=== PATIENT | male | born 1965 | race Caucasian/White ===

== ENCOUNTER 2018-04-16 18:39 | Emergency (ER) | payer OTHER ==
[2018-04-16 18:58] VITALS: BP 177/99; PULSE 66; TEMP 97.7; BMI 34.0
[2018-04-16] MEDS ORDERED: ACETAMINOPHEN 500 MG TABLET (FP) PO ONE (18:58)
--- NOTE | 2018-04-16 18:58 | PDOC ---
Rapid Medical Evaluation Chief Complaint: Headache Time Seen by Provider: 04/16/18 18:54 Medical Evaluation: 04/16/18 18:57 I performed a brief in-person evaluation of this patient. Chief complaint is: Severe headache ("like a vein is going to explode") left temporal region, associated with vomiting, sudden onset 30 mins ago. Pertinent physical exam findings include: Appears very uncomfortable/ distressed. Left eye injected. No neck stiffness or meningismus. No focal weakness or numbness. I have ordered the following: Labs, head CT. Patient will proceed to the ED for further evaluation. Discharge Disposition - Diagnosis Headache Qualifiers: Headache chronicity pattern: acute headache - Discharge Dispostion Condition at time of disposition: Stable - Referrals - Patient Instructions - Post Discharge Activity
[2018-04-16] MEDS ORDERED: ACETAMINOPHEN 325 MG TABLET (FP) ONE (19:02)
--- NOTE | 2018-04-16 20:38 | PDOC ---
History of Present Illness - General Chief Complaint: Headache Stated Complaint: FACIAL PAIN Time Seen by Provider: 04/16/18 18:54 - History of Present Illness Initial Comments: 52 year old male with no PMH presenting with intermittent left sided headache for the past week. Patient states that he has had multiple episodes of left sided headache that was sharp and severe on onset multiple times and had concomitant left sided tearing without visual symptoms. Patient states he does get headaches twice a week but those were generalized and squeezing sensation and that these are much different than his usual headaches. Denies any fevers, chills, neck stiffness, photophobia, sonophobia, nausea, vomiting, or other symptoms. Of note he admits to one episode of syncope in the shower 20 years ago and was diagnosed with "pre heart attack". All this work up was done in [place] but he was never prescribed medication for it. 04/16/18 23:12 01 Past History - Past Medical History Allergies/Adverse Reactions: Allergies Allergy/AdvReac Type Severity Reaction Status Date / Time No Known Allergies Allergy Verified 04/16/18 18:58 Home Medications: Ambulatory Orders Naproxen Sodium [Naproxen Sodium Cr] 500 mg PO BID PRN #30 tbmp.24hr 04/17/18 COPD: No Disorders: No Kidney Stones: No - Surgical History Cardiac Surgery: No Cholecystectomy: No - Immunization History Immunization Up to Date: No - Suicide/Smoking/Psychosocial Hx Smoking History: Never smoked Have you smoked in the past 12 months: No Information on smoking cessation initiated: No Hx Alcohol Use: No Drug/Substance Use Hx: No Review of Systems - Review of Systems Constitutional: No: Chills, Diaphoresis, Fever HEENTM: No: Blurred Vision, Tearing Respiratory: No: Cough, Orthopnea, Shortness of Breath Cardiac (ROS): No: Chest Pain, Edema, Irregular Heart Rate ABD/GI: No: Diarrhea, Nausea, Vomiting : No: Burning, Dysuria, Discharge Musculoskeletal: No: Joint Pain, Joint Swelling Integumentary: No: Rash, Sweating Neurological: Yes: Headache. No: Numbness, Paresthesia, Tingling Psychiatric: No: Anxiety, Depression Hematologic/Lymphatic: No: Anemia, Blood Clots, Easy Bleeding *Physical Exam - Vital Signs Last Vital Signs Temp Pulse Resp BP Pulse Ox 97.7 F 66 16 177/99 H 99 04/16/18 18:55 04/16/18 18:55 04/16/18 18:55 04/16/18 18:55 04/16/18 18:55 - Physical Exam General Appearance: Yes: Nourished, Appropriately Dressed. No: Apparent Distress HEENT: positive: EOMI, KAYCEE, Normal ENT Inspection, Normal Voice, Other (left sceleral injection no tenderness over scalp, no palpable cord.) Neck: negative: Tender Respiratory/Chest: positive: Lungs Clear, Normal Breath Sounds. negative: Chest Tender, Respiratory Distress, Accessory Muscle Use Cardiovascular: positive: Regular Rhythm, Regular Rate Gastrointestinal/Abdominal: positive: Normal Bowel Sounds, Flat, Soft. negative : Tender Lymphatic: negative: Adenopathy, Tenderness Musculoskeletal: positive: Normal Inspection. negative: Decreased Range of Motion Extremity: positive: Normal Capillary Refill, Normal Inspection, Normal Range of Motion. negative: Tender Integumentary: positive: Normal Color, Dry, Warm Neurologic: positive: Fully Oriented, Alert, Normal Mood/Affect, Normal Response , Motor Strength 5/5 Moderate Sedation - Procedure Monitoring Vital Signs: Procedure Monitoring Vital Signs Temperature 97.7 F 04/16/18 18:55 Pulse Rate 66 04/16/18 18:55 Respiratory Rate 16 04/16/18 18:55 Blood Pressure 177/99 H 04/16/18 18:55 O2 Sat by Pulse Oximetry (%) 99 04/16/18 18:55 ED Treatment Course - LABORATORY CBC & Chemistry Diagram: 04/16/18 21:16 04/16/18 18:56 - Medications Given in the ED: ED Medications Discontinued Medications Generic Name Dose Route Start Last Admin Trade Name Phuc PRN Reason Stop Dose Admin Acetaminophen 975 mg 04/16/18 18:58 04/16/18 19:04 Tylenol - PO 04/16/18 18:59 975 mg ONCE ONE Administration Medical Decision Making - Medical Decision Making 52 year old male with history of headaches but new onset left sided sharp intermittent headache. This headache is highly consistent with cluster headache given it comes on groups and comes on 12 hours to 2 day sin between. Denies any FND but does have lacrimation in the left eye. Patient improved with tylenol and oxygen but headache came back soon. His pain became severe enough to the point where the patient syncopized at one point when he immediately jumped up in pain out of the bed. He fell back onto the bed and did not hit his head. He had not shaking or post-ictal state. Both his CT head and CTA Brain were negative for bleed or aneurysm. His pain drastically improved after Toradol, Reglan, Benadryl and IV fluids. Patient ambulating and feels completely symptom free. Will DC with naproxen use instructions and neurology follow up. 04/17/18 01:26 *DC/Admit/Observation/Transfer Diagnosis at time of Disposition: Headache Qualifiers: Headache type: unspecified Headache chronicity pattern: acute headache Intractability: not intractable Qualified Code(s): R51 - Headache - Discharge Dispostion Disposition: HOME Condition at time of disposition: Improved Decision to Admit order: No - Prescriptions Prescriptions: Naproxen Sodium [Naproxen Sodium Cr] 500 mg PO BID PRN #30 tbmp.24hr PRN Reason: Headache - Referrals Referrals: Juan Jose Quezada MD [Staff Physician] - - Patient Instructions Printed Discharge Instructions: DI for Headache Additional Instructions: Please use naproxen as needed for the headache up to twice per day. Please see the neurologist this week or early next week. Please return to the ED if you have new or worsening symptoms. - Post Discharge Activity
--- NOTE | 2018-04-16 20:43 | PDOC ---
Attending Attestation - HPI HPI: 04/16/18 21:36 The patient is a 52-year-old male, with no past medical history, who presents to the ED with a left-sided headache today. The patient just got back from [place] today and states that his symptoms began while on his trip. He states that his headache would come on suddenly, but resolved after 15 minutes. His symptoms recurred 1 hour prior to arrival to the ED, but he became concerned when the headache did not resolve. He also endorses tearing from the left eye only. He reports that he experiences generalized headaches frequently, but has never experienced a headache localized to one side. - Physicial Exam PE: 04/16/18 21:40 Agree with resident's exam. <Tere Chiu - Last Filed: 04/16/18 21:36> - Resident Resident Name: Verna Simons - ED Attending Attestation I have performed the following: I have examined & evaluated the patient, The case was reviewed & discussed with the resident, I agree w/resident's findings & plan - Medical Decision Making 04/17/18 01:33 [id number] male with intermittent left-sided headache CT scan of the brain plain and CTA were negative for acute abnormality Patient improved after Toradol, Reglan, Benadryl and IV fluid normal saline in the emergency department He will be discharged to follow up with neurology for further evaluation at Impression intermittent left-sided headache <Fariha Boggs - Last Filed: 04/17/18 01:36> Attestations - Attestations 04/16/18 21:40 Documentation prepared by Tere Chiu, acting as medical equipment repairer for Fariha Boggs DO. <Tere Chiu - Last Filed: 04/16/18 21:36>
[2018-04-16 21:29] LABS: BASO % 0.3 % (0-2.0); EOS % 3.7 % (0-4.5); HEMATOCRIT 50.8 % (35.4-49); HEMOGLOBIN 17.8 GM/dL (11.7-16.9); LYMPH % 19.5 % (8-40); MCH 29.7 pg (25.7-33.7); MEAN CELL VOLUME 84.8 fl (80-96); MEAN PLT VOLUME 9.7 fl (7.5-11.1); MONO % 6.6 % (3.8-10.2); NEUT % 69.9 % (42.8-82.8); PLATELET COUNT 153 K/MM3 (134-434); RBC 5.99 M/mm3 (4.00-5.60); RDW 13.8 % (11.9-15.9); WHITE BLOOD COUNT 11.2 K/mm3 (4.0-10.0)
[2018-04-16 21:42] LABS: INR 0.99 (0.83-1.09); PROTHROMBIN TIME (PATIENT) 11.7 SEC (9.7-13.0)
[2018-04-16] MEDS ORDERED: KETOROLAC TROMETHAMINE 30 MG/1 ML VIAL IVPUSH ONE (22:15)
[2018-04-16] MEDS ORDERED: SODIUM CHLORIDE 0.9% 500 ML INFUS.BAG IV ONE (22:15)
[2018-04-16] MEDS ORDERED: METOCLOPRAMIDE HCL 10 MG TABLET (FP) PO ONE (22:15)
[2018-04-16 22:26] LABS: ALBUMIN 4.2 g/dl (3.4-5.0); ALK PHOS 106 U/L (45-117); ANION GAP 7 MMOL/L (8-16); BILIRUBIN,TOTAL 0.6 mg/dL (0.2-1); BLOOD UREA NITROGEN 19 mg/dL (7-18); CALCIUM 8.3 mg/dL (8.5-10.1); CHLORIDE 105 mmol/L (98-107); CO2 27 mmol/L (21-32); CREATININE 1.2 mg/dL (0.55-1.3); GLUCOSE,RANDOM 122 mg/dL (74-106); POTASSIUM 3.9 mmol/L (3.5-5.1); SGOT/AST 40 U/L (15-37); SGPT/ALT 65 U/L (13-61); SODIUM 138 mmol/L (136-145); TOT PROT 8.4 g/dl (6.4-8.2)
[2018-04-16] MEDS ORDERED: KETOROLAC TROMETHAMINE 30 MG/1 ML VIAL ONE (22:46)
[2018-04-16] MEDS ORDERED: METOCLOPRAMIDE HCL INJECTION 10 MG/2 ML VIAL ONE (22:46)
== END 2018-04-17 02:38 | disposition home or self-care (01) ==
LOC: JER 18:39
PROC: 3E0337Z Introduction of Electrolytic and Water Balance Substance into Peripheral Vein, Percutaneous Approach (ICD-10-PCS; principal; 2018-04-16)
PROC: 3E0333Z Introduction of Anti-inflammatory into Peripheral Vein, Percutaneous Approach (ICD-10-PCS; 2018-04-16)
PROC: 3E033GC Introduction of Other Therapeutic Substance into Peripheral Vein, Percutaneous Approach (ICD-10-PCS; 2018-04-16)
DX: R51 Headache (principal)
CPT/HCPCS: 36415; 70450-TC; 70496-TC; 80053; 85025; 85610; 85651; 99281-25